=== PATIENT | female | born 1975 | race Caucasian/White ===

== ENCOUNTER → 2019-10-20 08:16 | Outpatient (CLI) | payer OTHER, SELFPAY ==
--- NOTE | 2019-10-20 08:29 | US_ITS ---
STUDY: SUPERFICIAL ULTRASOUND - RIGHT LABIA. REASON FOR EXAM: Female, 44 years old. LABIAL MASS X 6 MONTHS PAINFUL AT TIMES , NO DRAINAGE TECHNIQUE: A superficial ultrasound was performed with real-time and static lowery-scale imaging. COMPARISON: None. FINDINGS: The palpable abnormality corresponds to a 4.6 cm x 4.4 cm x 2.7 cm heterogeneous solid mass. A biopsy is recommended for further evaluation. US/Other Unlisted US Procedure IMPRESSION: The palpable abnormality corresponds to a 4.6 cm x 4.4 cm x 2.7 cm heterogeneous solid mass. A biopsy is recommended for further evaluation. Electronically Signed: Kike Gibson, at 11:42 EDT , Service support ,
== END ==
LOC: US 08:20
PROVIDERS: PCP Family Medicine; Referring Provider Advanced Practice Midwife; Visit Provider Advanced Practice Midwife
DX: N90.89 Other specified noninflammatory disorders of vulva and perineum (principal)
CPT/HCPCS: 76999

== ENCOUNTER 2024-11-03 17:56 | Emergency (ER) | payer OTHER, SELFPAY ==
[2024-11-03 17:56] VITALS: BP 197/106; PULSE 76; RESP 16; TEMP 36.4; O2SAT 97; BMI 38.2
[2024-11-03 18:42] VITALS: BP 210/99
--- NOTE | 2024-11-03 19:41 | ED.VIS.LOWEX ---
HPI History of Present Illness HPI Narrative: Patient presents with right knee and calf pain that has been getting worse over the past 2 weeks. Patient denies any trauma or injury. Patient states her pain is worse with flexion and is better with rest. Patient describes her pain as aching. Patient states she went to the urgent care and was referred to the emergency department for possible DVT. Patient denies any paresthesias or weakness. Chief Complaint: Lower Extremity Injury Informant: patient Onset/Context/Timing Onset: Weeks (2) Context: Gradual Onset Timing: Continuous Quality of Pain: Aching Location: Right knee and calf Worsened by: Flexion of the right knee Relieved by: Rest Associated Symptoms Associated Symptoms: Negative for Parasthesia, Weakness or Loss of Funtion [facility] Medical History (Updated 11/03/24 @ 23:[address] Ethan Doty DO) Hypercholesterolemia Hypertension Home Medications ?Medication ?Instructions ?Recorded ?Last Taken ?Type bupropion HCl 150 mg tablet,12 hr 150 mg PO BID 10/23/16 Unknown History sustained-release hydrochlorothiazide 25 mg tablet 25 mg PO DAILY 10/23/16 Unknown History lisinopril 20 mg tablet (Zestril) 20 mg PO DAILY 10/23/16 Unknown History sertraline 50 mg tablet 50 mg PO DAILY 10/23/16 Unknown History amlodipine 10 mg tablet (Norvasc) 10 mg PO DAILY #30 tabs 11/03/24 Unknown Rx losartan 100 mg tablet 100 mg PO DAILY #30 tabs 11/03/24 Unknown Rx Allergy/AdvReac Type Severity Reaction Status Date / Time lisinopril Allergy Intermediate COUGH Verified 11/03/24 17:57 Surgical History (Updated 11/03/24 @ 23:[address] Ethan Doty DO) History of herniorrhaphy Hx of appendectomy Social History Smoking Status: Current every day smoker tobacco type: cigarettes ROS ROS ED Constitutional Constitutional ED: Denies chills or fever(s) Eyes Eyes: Denies blurry vision or change in vision ENT ENT ED: Denies rhinorrhea or sore throat Cardiovascular Cardiovascular: Denies chest pain or palpitations Respiratory/Chest Respiratory/Chest: Denies cough or dyspnea Gastrointestinal Gastrointestinal: Denies nausea or vomiting Genitourinary Genitourinary ED: Denies dysuria or hematuria Musculoskeletal Musculoskeletal: Denies back pain or neck pain Integumentary Denies abscess or rash Neurologic Neurologic: Denies headache(s) or weakness Allergic/Immunologic Allergic/Immunologic ED: Denies mouth swelling or urticaria EXAM Physical Exam Const Vital Signs: 11/03/24 17:56 11/03/24 18:42 11/03/24 22:00 Temperature 97.6 F L Temperature Source Oral Pulse Rate 76 87 Respiratory Rate 16 18 Blood Pressure 197/106 H 210/99 H 166/71 H Blood Pressure Mean 136 136 102 Pulse Ox 97 92 Oxygen Delivery Method Room Air Room Air 11/03/24 22:35 Temperature 97.6 F L Temperature Source Pulse Rate 82 Respiratory Rate 18 Blood Pressure 179/83 H Blood Pressure Mean 115 Pulse Ox 92 Oxygen Delivery Method Positive well nourished and well developed General Appearance ED: well developed and NAD HEENT Reports moist mucous membranes normocephalic Neck full ROM and supple Cardio regular rhythm Extremity Extremity Narrative: There is tenderness over the right knee. There is no edema or ecchymosis. There is no joint effusion. There is tenderness in the popliteal fossa. There is mild tenderness over the calf. Range of motion was limited in all motions of the right knee secondary to pain. Sensation was intact to light touch in the right lower extremity. Strength is 5/5 in the right lower extremity. Neuro oriented x3, CN's II-XII intact bilaterally, moves all extremities and no sensory deficits noted Sensorium / Orientation: alert Motor Exam: strength 5/5 throughout Psych mental status grossly normal MDM MDM MDM Narrative Medical decision making narrative: Differential diagnosis includes Lai's cyst, arthritis, and DVT. Venous duplex of the right lower extremity will be obtained to assess for DVT. Radiography Diagnostic Testing: Clinical Impression(s) from Imaging Studies Venous Duplex 11/03/24 19:43 IMPRESSION: No deep venous thrombosis identified in the extremity. 5.6 cm Lai's cyst. Reading Location: [facility] Venous duplex of the right lower extremity was obtained. There is no evidence of DVT. There is a 5.6 cm Lai's cyst. This was interpreted by the radiologist was also independently reviewed by myself. Treatment and Re-Evaluation Narrative: Patient was given a dose of clonidine here. Patient's blood pressure improved to 166/71. Patient was given prescriptions for her losartan and Norvasc. Patient was instructed to follow-up with her primary care physician in 5 to 7 days. Patient was instructed return if worse in any way. Patient understood and was agreeable with the plan. All questions were answered. Discharge Plan Triage Chief Complaint: Lower Extremity Injury ED Provider: Ethan Doty Dx/Rx/DC Orders Clinical Impression: Synovial cyst of popliteal space [Lai], right knee, Hypertension Instructions: ED Lai's Cyst, ED High Blood Pressure Hypertension Prescriptions: New amlodipine [Norvasc] 10 mg tablet 10 mg PO DAILY Qty: 30 0RF losartan 100 mg tablet 100 mg PO DAILY Qty: 30 0RF No Action bupropion HCl 150 MG tablet sustained-release 12 hr 150 mg PO BID lisinopril [Zestril] 20 MG tablet 20 mg PO DAILY hydrochlorothiazide 25 MG tablet 25 mg PO DAILY sertraline 50 MG tablet 50 mg PO DAILY Primary Care Provider: Faustino Sneed Referrals: Faustino Sneed MD [Primary Care Provider] - 5-7 Days Print Language: Nauruan Disposition Disposition: Home, Self Care Discharge Date/Time: 11/03/24 22:39
--- NOTE | 2024-11-03 19:43 | US_ITS ---
PROCEDURE: VENOUS DUPLEX IMAG/LIMITED/UNI 11/03/2024 REASON FOR EXAM: F 49 y/o Pain TECHNIQUE: Grayscale color flow and doppler analysis of the right lower extremity. COMPARISON: None FINDINGS: There is no intraluminal echogenicity to suggest the presence of a deep venous thrombosis. Appropriate respiratory variation, augmentation and venous compression is noted. 5.6 cm popliteal fossa cyst. US/Venous Duplex Imag/Limited/Uni IMPRESSION: No deep venous thrombosis identified in the extremity. 5.6 cm Lai's cyst. [facility]
[2024-11-03] MEDS: cloNIDine HCl 0.2 MG Tablet PO (19:51)
[2024-11-03 22:00] VITALS: BP 166/71; PULSE 87; RESP 18; O2SAT 92
[2024-11-03 22:35] VITALS: BP 179/83; PULSE 82; RESP 18; TEMP 36.4; O2SAT 92
== END 2024-11-03 22:39 | disposition home or self-care (01) ==
PROVIDERS: Emergency Provider Emergency Medicine; PCP Family Medicine; Visit Provider Emergency Medicine
DX: M79.661 Pain in right lower leg (principal); I10 Essential (primary) hypertension; E78.00 Pure hypercholesterolemia, unspecified; M71.21 Synovial cyst of popliteal space [Baker], right knee; M25.561 Pain in right knee; Z79.899 Other long term (current) drug therapy; F17.210 Nicotine dependence, cigarettes, uncomplicated
CPT/HCPCS: 93971; 99282

== ENCOUNTER 2025-04-07 12:20 | Emergency (ER) | payer OTHER, SELFPAY ==
[2025-04-07 12:21] VITALS: BP 179/89; PULSE 113; RESP 18; TEMP 36.9; O2SAT 99; BMI 38.1
--- NOTE | 2025-04-07 12:59 | EKG12_ITS ---
Test Reason : Blood Pressure : */* mmHG Vent. Rate : 88 BPM Atrial Rate : 88 BPM P-R Int : 166 ms QRS Dur : 92 ms QT Int : 360 ms P-R-T Axes : 40 51 18 degrees QTcB Int : 435 ms Normal sinus rhythm Normal ECG Confirmed by Paul Gutierrez ([id number]), design editor NORMA TOWNSEND ([id number]) on 04/09/2025 6:42:51 AM Referred By: Confirmed By: Paul Gutierrez
--- NOTE | 2025-04-07 13:00 | ED.VIS.LOWEX ---
HPI <Dr. Catherine Bryant MD - Last Filed: 04/08/25 23:46> History of Present Illness Chief Complaint: Edema Narrative Narrative: Patient is a 49-year-old female presenting to the emergency department for dyspnea and lower extremity edema since last Saturday. Patient has a breast cancer and is currently on chemotherapy including Herceptin and Taxol. Patient states that she did have an echo on February 04, 2025 that was normal. She did show me the report, EF of 57%. Patient follows with Dr. Serna. Last week she had blood work that showed low potassium they gave her potassium supplements. They then saw her in office on Saturday and recheck the potassium and it was within normal limits they started her on a 3-day course of torsemide. She took this as prescribed. She states that she initially got a little bit of fluid off her legs but she feels like it is back on again. She reports a weight gain of around 10 to 12 pounds. She endorses dyspnea with exertion. No orthopnea. No chest pain. States over the past week she has had some intermittent palpitations and lightheadedness as well this last for a few seconds at a time and then goes away. [facility] <Dr. Catherine Bryant MD - Last Filed: 04/08/25 23:46> [facility] Medical History Hypercholesterolemia Hypertension Home Medications ?Medication ?Instructions ?Recorded ?Last Taken ?Type bupropion HCl 150 mg tablet,12 hr 150 mg PO BID 10/23/16 Unknown History sustained-release hydrochlorothiazide 25 mg tablet 25 mg PO DAILY 10/23/16 Unknown History lisinopril 20 mg tablet (Zestril) 20 mg PO DAILY 10/23/16 Unknown History sertraline 50 mg tablet 50 mg PO DAILY 10/23/16 Unknown History amlodipine 10 mg tablet (Norvasc) 10 mg PO DAILY #30 tabs 11/03/24 Unknown Rx losartan 100 mg tablet 100 mg PO DAILY #30 tabs 11/03/24 Unknown Rx furosemide 40 mg tablet (Lasix) 40 mg PO DAILY #7 tabs 04/07/25 Unknown Rx Allergy/AdvReac Type Severity Reaction Status Date / Time lisinopril Allergy Intermediate COUGH Verified 04/07/25 12:24 hydrochlorothiazide (hctz) AdvReac dehydration Verified 04/07/25 12:24 Surgical History History of herniorrhaphy Hx of appendectomy Social History Smoking Status: Current every day smoker tobacco type: cigarettes ROS <Dr. Catherine Bryant MD - Last Filed: 04/08/25 23:46> ROS ED ROS Narrative See HPI EXAM <Dr. Catherine Bryant MD - Last Filed: 04/08/25 23:46> Physical Exam Narrative Exam Narrative: Vital signs: Reviewed General: Alert and oriented x 3. No acute distress HEENT: Head is normocephalic and atraumatic, sinuses nontender, pupils equal round and reactive. Nares are patent. Oropharynx and throat exams normal. Neck: Supple without lymphadenopathy nontender Cardiovascular: Regular rate and rhythm, no murmurs. No rubs or gallops. Normal S1 and S2 Respiratory: Clear to auscultation bilaterally. No wheezes, rales, rhonchi. On room air saturating 99%. Abdominal: Soft and nontender. Normal bowel sounds. No guarding or rebound. Nonsurgical abdomen Extremities: 2+ pitting edema symmetric bilaterally. No erythema or warmth. No posterior calf tenderness palpation. No bruising. Normal range of motion. Normal sensation. Skin: No rash or redness. Neurological: Cranial nerves II through XII are grossly intact. Normal strength and sensation. Normal cerebellar function The rest of the physical exam is unremarkable Const Vital Signs: 04/07/25 12:20 04/07/25 12:21 04/07/25 14:20 Temperature 98.5 F Temperature Source Oral Pulse Rate 113 H 89 Respiratory Rate 18 17 Respiratory Effort Normal Respiratory Pattern Normal Blood Pressure 179/89 H 157/75 H Blood Pressure Mean 119 102 Pulse Ox 99 99 Oxygen Delivery Method Room Air Room Air 04/07/25 16:00 Temperature Temperature Source Pulse Rate 87 Respiratory Rate 16 Respiratory Effort Respiratory Pattern Blood Pressure 179/92 H Blood Pressure Mean 121 Pulse Ox 97 Oxygen Delivery Method Room Air <Dr. Spenser Oconnor DO - Last Filed: 04/07/25 18:18> Physical Exam Const Vital Signs: 04/07/25 12:20 04/07/25 12:21 04/07/25 14:20 Temperature 98.5 F Temperature Source Oral Pulse Rate 113 H 89 Respiratory Rate 18 17 Respiratory Effort Normal Respiratory Pattern Normal Blood Pressure 179/89 H 157/75 H Blood Pressure Mean 119 102 Pulse Ox 99 99 Oxygen Delivery Method Room Air Room Air 04/07/25 16:00 Temperature Temperature Source Pulse Rate 87 Respiratory Rate 16 Respiratory Effort Respiratory Pattern Blood Pressure 179/92 H Blood Pressure Mean 121 Pulse Ox 97 Oxygen Delivery Method Room Air [facility] <Dr. Catherine Bryant MD - Last Filed: 04/08/25 23:46> [facility] Narrative Medical decision making narrative: Patient is a 49-year-old female presenting to the emergency department for dyspnea and lower extremity edema. Patient was seen and examined. Vitals are stable. Patient resting bed comfortably no acute distress. Differential includes but is not limited to: CHF, ACS, cardiac dysrhythmia, electrolyte imbalance, PE CBC with no leukocytosis and normal hemoglobin. BMP with no significant abnormalities. 40 mg IV lasix given. Chest x-ray with no opacities, vascular congestion or cardiomegaly noted on my review. Radiology read with no acute findings. Mag and TSH within normal limits. BNP within normal limits. Troponin and reflex within normal limits at 11 and 10. D-dimer elevated at 1.26, CTA chest ordered. Discussed with Dr. Serna. Verified that he did not want any other labs or imaging done pending the CT. This is negative he agrees with discharging the patient home in a few days of Lasix. States he will follow-up with her closely to check her potassium level given she has had episodes of hypokalemia. Signed out to Dr. Oconnor pending CTA chest imaging. Clinical impression: 1. Dyspnea 2. Edema Patient was turned over to me by Dr. Bryant@4:30 PM on 04/07/2025 Brief history: 49-year-old female presents with shortness of breath and lower extremity edema in setting of cancer. Physical exam: As above Labs and images reviewed (if obtained): EKG with normal sinus rhythm rate 88, normal axis, normal intervals, no STEMI CBC with no leukocytosis to suggest systemic inflammation, no anemia or thrombocytopenia D-dimer elevated consistent with increased clot breakdown concerning for PE. Will obtain CT PE study BMP without septic electrolyte abnormalities, no sign of metabolic acidosis or endorgan hypoperfusion with a normal bicarb anion gap, no acute kidney injury High-sensitivity troponin is negative, no evidence of myocardial ischemiax2 TSH within normal limit BNP within normal limit I have personally reviewed the patient's chest x-ray. Chest x-ray is unremarkable for pulmonary edema, pneumothorax, pneumonia or focal cardiopulmonary abnormality. CT of the chest did not show signs of PE MDM/plan: Upon re-evaluation the patient remained hemodynamically stable. Initial tachycardia resolved. She remained 97% on room air. Dr. Bryant prescribed the patient Lasix which I agreed with. The patient is appropriate discharge home as no clear life-limiting etiology can be ascertained here in the emergency department. Strict return precautions will be discussed. Follow-up plan discussed Disposition: Discharge home History & Record Review Discussion w/independent historian: Patient Lab Data Attestation: I reviewed the patient's lab results. Labs: Laboratory Results - last 24 hr 04/07/25 04/07/25 04/07/25 13:35 15:35 15:40 WBC 8.9 RBC 3.99 L Hgb 12.0 Hct 35.4 L MCV 88.7 MCH 30.1 MCHC 33.9 RDW Std Deviation 44.8 H RDW Coeff of Regina 13.9 Plt Count 278 MPV 10.8 Immature Gran % (Auto) 0.900 Neut % (Auto) 88.3 H Lymph % (Auto) 9.9 L [place] % (Auto) 0.6 Eos % (Auto) 0.0 Baso % (Auto) 0.3 Absolute Neuts (auto) 7.9 H Absolute Lymphs (auto) 0.88 Nucleated RBC % 0 D-Dimer Quant (PE/DVT) 1.26 H* Sodium 140 Potassium 4.2 Chloride 105 Carbon Dioxide 22.9 Anion Gap 12 BUN 14 Creatinine 0.86 Estim Creat Clear Calc 89.34 Est GFR (MDRD) Non-Af 82 BUN/Creatinine Ratio 15.9 Glucose 142 H Calcium 9.8 Magnesium 2.2 Troponin T High Sens 11 Troponin T Hi Sens 2 Hr 10 NT pro BNP II 81 TSH 0.635 Radiography Chest X-Ray - ED: 2 View, Read by ED Physician, Normal, No Acute Disease and No Infiltrates Diagnostic Testing: Clinical Impression(s) from Imaging Studies Chest X-Ray 04/07/25 13:39 IMPRESSION: NO ACUTE FINDINGS. Reading Location: [facility] Chest CTA 04/07/25 16:34 IMPRESSION: No acute pulmonary emboli. No consolidations. Minima pulmonary emphysema. Reading Location: [facility] <Dr. Spenser Oconnor, DO - Last Filed: 04/07/25 18:18> [facility] Narrative Medical decision making narrative: Patient is a 49-year-old female presenting to the emergency department for dyspnea and lower extremity edema. Patient was seen and examined. Vitals are stable. Patient resting bed comfortably no acute distress. Differential includes but is not limited to: CHF, ACS, cardiac dysrhythmia, electrolyte imbalance, PE CBC with no leukocytosis and normal hemoglobin. BMP with no significant abnormalities. 40 mg IV lasix given. Chest x-ray with no opacities, vascular congestion or cardiomegaly noted on my review. Radiology read with no acute findings. Mag and TSH within normal limits. BNP within normal limits. Troponin and reflex within normal limits at 11 and 10. D-dimer elevated at 1.26, CTA chest ordered. Discussed with Dr. Serna. Verified that he did not want any other labs or imaging done pending the CT. This is negative he agrees with discharging the patient home in a few days of Lasix. States he will follow-up with her closely to check her potassium level given she has had episodes of hypokalemia. Clinical impression: 1. Dyspnea 2. Edema Patient was turned over to me by Dr. Bryant@4:30 PM on 04/07/2025 Brief history: 49-year-old female presents with shortness of breath and lower extremity edema in setting of cancer. Physical exam: As above Labs and images reviewed (if obtained): EKG with normal sinus rhythm rate 88, normal axis, normal intervals, no STEMI CBC with no leukocytosis to suggest systemic inflammation, no anemia or thrombocytopenia D-dimer elevated consistent with increased clot breakdown concerning for PE. Will obtain CT PE study BMP without septic electrolyte abnormalities, no sign of metabolic acidosis or endorgan hypoperfusion with a normal bicarb anion gap, no acute kidney injury High-sensitivity troponin is negative, no evidence of myocardial ischemiax2 TSH within normal limit BNP within normal limit I have personally reviewed the patient's chest x-ray. Chest x-ray is unremarkable for pulmonary edema, pneumothorax, pneumonia or focal cardiopulmonary abnormality. CT of the chest did not show signs of PE MDM/plan: Upon re-evaluation the patient remained hemodynamically stable. Initial tachycardia resolved. She remained 97% on room air. Dr. Bryant prescribed the patient Lasix which I agreed with. The patient is appropriate discharge home as no clear life-limiting etiology can be ascertained here in the emergency department. Strict return precautions will be discussed. Follow-up plan discussed Disposition: Discharge home Lab Data Labs: Laboratory Results - last 24 hr 04/07/25 04/07/25 04/07/25 13:35 15:35 15:40 WBC 8.9 RBC 3.99 L Hgb 12.0 Hct 35.4 L MCV 88.7 MCH 30.1 MCHC 33.9 RDW Std Deviation 44.8 H RDW Coeff of Regina 13.9 Plt Count 278 MPV 10.8 Immature Gran % (Auto) 0.900 Neut % (Auto) 88.3 H Lymph % (Auto) 9.9 L [place] % (Auto) 0.6 Eos % (Auto) 0.0 Baso % (Auto) 0.3 Absolute Neuts (auto) 7.9 H Absolute Lymphs (auto) 0.88 Nucleated RBC % 0 D-Dimer Quant (PE/DVT) 1.26 H* Sodium 140 Potassium 4.2 Chloride 105 Carbon Dioxide 22.9 Anion Gap 12 BUN 14 Creatinine 0.86 Estim Creat Clear Calc 89.34 Est GFR (MDRD) Non-Af 82 BUN/Creatinine Ratio 15.9 Glucose 142 H Calcium 9.8 Magnesium 2.2 Troponin T High Sens 11 Troponin T Hi Sens 2 Hr 10 NT pro BNP II 81 TSH 0.635 Radiography Diagnostic Testing: Clinical Impression(s) from Imaging Studies Chest X-Ray 04/07/25 13:39 IMPRESSION: NO ACUTE FINDINGS. Reading Location: [facility] Chest CTA 04/07/25 16:34 IMPRESSION: No acute pulmonary emboli. No consolidations. Minima pulmonary emphysema. Reading Location: [facility] Discharge Plan Triage Chief Complaint: Edema ED Provider: Spenser Oconnor Dx/Rx/DC Orders Clinical Impression: Acute dyspnea, Bilateral edema of lower extremity Instructions: Taking a Diuretic, ED Dyspnea, ED Peripheral Edema, Bilateral Prescriptions: New furosemide [Lasix] 40 mg tablet 40 mg PO DAILY Qty: 7 0RF No Action bupropion HCl 150 MG tablet sustained-release 12 hr 150 mg PO BID lisinopril [Zestril] 20 MG tablet 20 mg PO DAILY hydrochlorothiazide 25 MG tablet 25 mg PO DAILY sertraline 50 MG tablet 50 mg PO DAILY amlodipine [Norvasc] 10 mg tablet 10 mg PO DAILY Qty: 30 0RF losartan 100 mg tablet 100 mg PO DAILY Qty: 30 0RF Primary Care Provider: Faustino Sneed Referrals: Faustino Sneed MD [Primary Care Provider] - Colin Serna DO [Med Staff - Active Staff] - 2 Days Activity Restrictions/Additional Instructions: Take the Lasix 1 tablet a day for [address] Serna for close follow up. Your evaluation in the Emergency Department did not reveal any acute reason for admission. However, I want to emphasize that you may be early in the course of a disease process or illness even if it is not present. For this reason you should follow-up within 24 hours for reevaluation with either your primary care physician or if necessary back here in the Emergency Department. You should return to the Emergency Department immediately if your symptoms worsen or new symptoms develop. Print Language: Bengali Disposition Disposition: Home, Self Care Discharge Date/Time: 04/07/25 18:42
--- NOTE | 2025-04-07 13:39 | RAD_ITS ---
PROCEDURE: CHEST PA AND LATERAL 04/07/2025 REASON FOR EXAM: CHEST PAIN TECHNIQUE: Procedure Code: RADCXR Modality: DX Procedure: CHEST PA AND LATERAL COMPARISON: None FINDINGS: Hardware: A right-sided port a catheter is in-situ with the tip at the junction of the superior vena cava and right atrium. EKG electrodes are seen. Surgical clips are seen in the left axilla. Heart: The heart size is normal. Mediastinum: The mediastinal contour is unremarkable. Lungs: The lungs are clear. Bones: Degenerative changes are identified within the thoracic spine. RAD/Chest PA and Lateral IMPRESSION: NO ACUTE FINDINGS. Reading Location: [place] [id number]
[2025-04-07 13:44] LABS: Hematocrit 35.4 % (37-47); Hemoglobin 12.0 g/dL (12.0-15.0); Immature Granulocytes Count 0.080 X10^3/uL (0.0-0.0); Mean Corp Hgb Conc 33.9 g/dL (32-36); Mean Corpuscular Volume 88.7 fL (81-99); Mean Platelet Vol. 10.8 fl (6.2-12.0); NRBC Flagged by Analyzer 0 % (0-5); Platelet Count 278 K/mm3 (150-450); RBC Distribution Width CV 13.9 % (11.6-14.6); RBC Distribution Width SD 44.8 fl (35.1-43.9); Red Blood Count 3.99 M/mm3 (4.2-5.4); White Blood Count 8.9 K/mm3 (4.4-11.0)
[2025-04-07 14:19] LABS: Anion Gap 12 (5-15); BUN 14 mg/dL (4-19); BUN/Creat Ratio 15.9 RATIO (10-20); Calcium,Total 9.8 mg/dL (7.6-11.0); Carbon Dioxide 22.9 mmol/L (21.0-32.0); Chloride 105 mmol/L (98-108); Estimated Creatinine Clearance 89.34 ml/min (50-250); Glucose 142 mg/dL (70-99); Magnesium 2.2 mg/dL (1.5-2.2); Potassium 4.2 mmol/L (3.3-5.1); Pro- Brain NATRIURETIC PEPTIDE 81 pg/mL (<=900); Troponin T High Sensitivity 11 ng/L (<=14)
[2025-04-07 14:20] VITALS: BP 157/75; PULSE 89; RESP 17; O2SAT 99
[2025-04-07 16:00] VITALS: BP 179/92; PULSE 87; RESP 16; O2SAT 97
[2025-04-07 16:34] LABS: D-Dimer Quantitative (DVT/PE) 1.26 FEU/ug/m (0.27-0.49)
--- NOTE | 2025-04-07 16:34 | CT_ITS ---
PROCEDURE: CTA CHEST W/WO CONTRAST 04/07/2025 REASON FOR EXAM: ELEVATED D DIMER, CANCER, SOB TECHNIQUE: Procedure Code: CTCTACHWW Modality: CT Procedure: CTA CHEST W/WO CONTRAST Multiplanar Sagittal and Coronal images were obtained. CONTRAST: 100 mL of Isovue 370 One or more dose reduction techniques were used (e.g., Automated exposure control, adjustment of the mA and/or kV according to patient size, use of iterative reconstruction technique). RADIATION DOSE SUMMARY: DLP: 798 mGycm COMPARISON: none FINDINGS: Right chest port noted. PULMONARY ARTERIES: No evidence of pulmonary embolism. LUNGS AND PLEURA: No consolidations. Minima pulmonary emphysema. no definite pulmonary edema. No mass or nodule. No pleural effusion. No pneumothorax. MEDIASTINUM: No lymphadenopathy or mass. The heart shows no acute findings. Coronary atherosclerosis. The aorta shows no acute findings. The pulmonary trunk, and branches of the vessels in the mediastinum are within normal limits. SUPRACLAVICULAR AND AXILLARY: No abnormalities seen in these regions. No mass or significant lymphadenopathy. UPPER ABDOMEN: The visualized upper abdomen is unremarkable. BONES AND SOFT TISSUES: The ribs are unremarkable. The visualized spine shows no significant acute findings. No focal bony mass lesions noted. The subcutaneous soft tissues are unremarkable. CT/CTA Chest W/WO Contrast IMPRESSION: No acute pulmonary emboli. No consolidations. Minima pulmonary emphysema. Reading Location: [facility]
[2025-04-07 16:38] LABS: Troponin T High Sens 2 HR 10 ng/L (<=14)
[2025-04-07 18:41] VITALS: BP 136/78; PULSE 78; RESP 16; O2SAT 98
== END 2025-04-07 18:42 | disposition home or self-care (01) ==
PROVIDERS: Student in an Organized Health Care Education/Training Program; Emergency Provider Emergency Medicine; PCP Family Medicine; Visit Provider Emergency Medicine
DX: R06.00 Dyspnea, unspecified (principal); C50.919 Malignant neoplasm of unspecified site of unspecified female breast; R60.0 Localized edema; E78.00 Pure hypercholesterolemia, unspecified; Z92.21 Personal history of antineoplastic chemotherapy; I10 Essential (primary) hypertension; Z79.899 Other long term (current) drug therapy; F17.210 Nicotine dependence, cigarettes, uncomplicated; Z90.49 Acquired absence of other specified parts of digestive tract
CPT/HCPCS: 71046; 71275; 80048; 83735; 83880; 84443; 84484; 85025; 85379; 93005; 96374; 99284; Q9967; A4216; J1938